=== PATIENT | female | born 1960 | race Caucasian/White ===

== ENCOUNTER 2022-06-12 11:23 | Inpatient (IN) ==
--- NOTE | 2022-06-12 11:38 | ED Triage Note ---
Date of Service June 12, 2022 History of Present Illness This patient was briefly evaluated while in triage. An abbreviated physical exam was performed. This patient is a 61-year-old Female with past medical history of kidney stones who presents to the ED for evaluation of a kidney stone. Patient was a [facility] ED waiting for approximately 13 hours and decided to leave and come here. She had testing done while waiting there and was found to have a 6 mm obstructing stone and urinary tract infection, per patient. She received Toradol, Zofran, and antibiotics while there. Physical Exam VITALS: Vitals are noted on the nurse's note and reviewed by myself. GENERAL: This is a 61-year-old female, in no acute distress, well-developed well-nourished. HEART: Regular rate and rhythm without murmurs gallops or rubs. LUNGS: Clear to auscultation bilaterally without wheezes, rales or rhonchi. ABDOMEN: Positive bowel sounds x 4. Mild tenderness LLQ. No CVA tenderness. NEURO: Patient was alert and oriented to person place and time. Initial orders for labs and / or imaging were placed and patient was placed in the waiting area until a bed is available. Please see further documentation for the full ED course.
[2022-06-12 11:56] LABS: Appearance Urine Clear (Clear); Bacteria Urine Automated Negative (Negative); Bilirubin Urine Negative (Negative); Blood Urine 1+ (Negative); Color Urine Yellow; Glucose Urine UA Negative (Negative); Ketones Urine Negative (Negative); Leukocyte Esterase Urine Trace (Negative); Nitrite Urine Negative (Negative); Protein Urine Negative (Negative); Specific Gravity Urine 1.013 (1.000-1.030); Urobilinogen Urine Negative (Negative); pH Urine 7.5 (4.5-7.5)
[2022-06-12 13:19] LABS: Basophils # (auto) 0.05 K/uL (0-0.2); Basophils % (auto) 0.6 %; Eosinophils # (auto) 0.31 K/uL (0-0.50); Eosinophils % (auto) 3.6 %; Hematocrit (blood only) 36.6 % (34.1-44.9); Hemoglobin 12.1 g/dl (12.0-16.0); Immature Granulocytes # (auto) 0.03 K/uL (0.00-0.02); Immature Granulocytes % (auto) 0.3 %; Lymphocytes # (auto) 2.15 K/uL (1.2-3.4); Lymphocytes % (auto) 24.7 %; Mean Corpuscular Hemoglobin 29.2 pg (25.0-34.0); Mean Corpuscular Hgb Conc 33.1 g/dL (32.0-36.0); Mean Corpuscular Volume 88.4 fL (80.0-100.0); Mean Platelet Volume 9.3 fL (9.4-12.3); Monocytes # (auto) 0.61 K/uL (0.24-0.82); Neutrophils # (auto) 5.57 K/uL (1.4-6.5); Neutrophils % (auto) 63.8 %; Platelet Count 237 K/uL (130-400); RDW Coefficient of Variation 13.8 % (11.5-14.5); RDW Standard Deviation 44.3 fL (36.4-46.3); Red Blood Count 4.14 M/uL (3.93-5.22); White Blood Count 8.72 K/ul (4.8-10.8)
--- NOTE | 2022-06-12 13:28 | XRay Report ---
KUB HISTORY: Left ureteral stone COMPARISON: None. FINDINGS: The bowel gas pattern is unremarkable. There are no dilated loops of small bowel to suggest an obstruction. The renal shadows are mostly obscured by overlying bowel gas. No definite renal chacho culi identified. Calcifications in the deep pelvis are nonspecific but favor phleboliths. There is a 6 mm calcification in the expected location of the left ureteropelvic junction. This may correspond t o the patient's history of a left ureteral stone. No pneumoperitoneum or pneumatosis. IMPRESSION: A 6 mm calcification at the expected location of the left ureteropelvic junction which may correspond to the patient's history of a left ureteral stone. ACT 112: Negative or not required by law. Electronically signed by: Kushal Sun M.D. 06/12/2022 1:27 PM
[2022-06-12] MEDS ORDERED: cefTRIAXone SODIUM 2,000 MG/70 ML BAG IV STA (16:37)
[2022-06-12] MEDS ORDERED: ACETAMINOPHEN 1000 MG/100 ML IV IV STA (16:37)
[2022-06-12] MEDS ORDERED: MoRPHine SULFATE 4 MG/ML 1 ML CARP\\VIAL IV STA (16:37)
[2022-06-12] MEDS ORDERED: ONDANSETRON INJ 2 MG/ML 2 ML VIAL IV STA (16:37)
[2022-06-12] MEDS ORDERED: SODIUM CHLORIDE 0.9% 1000ML 1,000 ML IV ONE (16:37)
--- NOTE | 2022-06-12 16:45 | Emergency Department Note ---
Impression & Plan Acute flank pain, Renal colic, UTI (urinary tract infection) ED Provider Note NAME: JUAREZ HOU AGE: 61 SEX: F : 1960 ARRIVES VIA: Walk-In INFORMANT: [Patient] ED PROVIDER(S): [Boby Aquino MD] CHIEF COMPLAINT: Kidney stone HISTORY OF PRESENT ILLNESS: The patient is a 61-year-old female presents to the ER with just around 2 days of left flank discomfort. The pain became severe last evening and she went to [facility] ED. The pain was a 9/10. She was vomiting. Patient was told that she had a 6 mm proximal left ureteral stone and a UTI. She was given IV fluids and IV antibiotics. She never actually was placed into a room as there was a long wait. The patient eventually left the ED waiting room in [place] and came to our hospital as she could no longer sit there and wait for a bed. The patient's pain is now a 5/10. She still has a bit of nausea. No fever. Patient has a history of renal stones and in the past, she has had to have stenting and stone retrieval. She is here hoping one of our urologist can help. REVIEW OF SYSTEMS: See HPI for pertinent positives and negatives. A total of ten systems were r eviewed and were otherwise negative. PMHx/PSHx: See Below SOCIAL HISTORY: See Below. PHYSICAL EXAM: GENERAL: Patient is in no acute distress. HEENT: No acute trauma, normocephalic atraumatic, mucous membranes moist, no nasal congestion, no scleral icterus. NECK: No stridor, no adenopathy, no meningismus, trachea is midline. LUNGS: Clear to auscultation bilaterally, no wheeze, no rhonchi, breath sounds equal. HEART: Without murmurs gallops or rubs, regular rate and rhythm. ABDOMEN: Soft, nontender, bowel sounds positive, no peritonitis. EXTREMITIES: No cyanosis or edema, full range of motion of all the joints without pain or difficulty, no signs for acute trauma. NEUROLOGIC: Oriented x 3, no acute motor or sensory deficits, no focal weakness. SKIN: No rash, no jaundice, no diaphoresis. Back: No flank discomfort to percussion. DIFFERENTIAL DIAGNOSIS: Renal colic, UTI, appendicitis, diverticulitis, mesenteric ischemia, aortic pathology, infections, inflammatory bowel disease, PUD, biliary pathology, as well as other pathologies. EMERGENCY DEPARTMENT COURSE/PROCEDURES: MEDICAL DECISION MAKING: No leukocytosis or concerning anemia. There is a normal platelet count. No renal failure, no significant electrolyte abnormality in need of emergent correction. No concerning liver enzyme elevation. Urinalysis showed some red cells, no obvious infection by UA. COVID test is currently pending. KUB does show a left proximal ureteral stone consistent with the CT findings reported. On exam, the patient was not toxic or febrile. She did not seem in significant distress. The patient was given IV Tylenol, IV ceftriaxone, IV morphine, IV Zofran and IV saline. I discussed options with the patient. She spoke with her family. The patient has decided to stay at our hospital for presumed urologic intervention tomorrow. I spoke with urology, Dr. Baumann. The patient will likely have a stent and potential stone retrieval tomorrow. Of note, the patient, by her report, was told she had a UTI on top of the renal stone. She had received IV antibiotics at the outside facility. Given this concern, antibiotics were continued. Past Med/Surg History Medical History Frequent UTI History of COVID-19 2021 HLD (hyperlipidemia) HTN (hypertension) Nephrolithiasis Surgical History (Updated 06/12/22 @ 18:29 by Karen Ferro PA-C) History of partial hysterectomy Hx of breast reduction, elective 2013 Hx of colonoscopy Hx of lithotripsy Hx of shoulder surgery b/l rotator cuff Family History Father Coronary heart disease Mother Alzheimer disease Polio Social History Smoking Status: Never smoker Hx Alcohol Use: No Hx Substance Use: No Preferred Language: Korean marital status: Single Current Living Situation: Family Current Living Situation Comment: daughter and grandbaby lives with her Feels Safe at Home: Yes Allergies Allergies Allergy/AdvReac Type Severity Reaction Status Date / Time butorphanol [From Stadol] Allergy Severe Hallucinati Verified 06/12/22 18:31 ng oxybutynin AdvReac Mild Flushing Verified 06/12/22 18:31 Home Meds Home Medications Medication Instructions Recorded Confirmed allopurinol 300 mg tablet 300 mg PO DAILY 06/12/22 06/12/22 ascorbic acid (vitamin C) 125 mg 125 mg PO DAILY 06/12/22 06/12/22 chewable tablet (Vitamin C) cetirizine 10 mg tablet 10 mg PO DAILY 06/12/22 06/12/22 cholecalciferol (vitamin D3) 50 50 mcg PO DAILY 06/12/22 06/12/22 mcg (2,000 unit) tablet docusate sodium 100 mg capsule 100 mg PO DAILY 06/12/22 06/12/22 (Colace) hydrochlorothiazide 25 mg tablet 25 mg PO DAILY 06/12/22 06/12/22 lactobacillus combination no.4 3 3,000 mmu cells PO DAILY 06/12/22 06/12/22 billion cell capsule (Probiotic) metoprolol succinate 25 mg 25 mg PO DAILY 06/12/22 06/12/22 tablet,extended release 24 hr multivitamin 1 tab PO DAILY 06/12/22 06/12/22 pantoprazole 40 mg tablet,delayed 40 mg PO DAILY 06/12/22 06/12/22 release potassium chloride 20 mEq 20 meq PO DAILY 06/12/22 06/12/22 tablet,extended release rosuvastatin 10 mg tablet 10 mg PO DAILY 06/12/22 06/12/22 Results & Data (ED) Vital Signs Vital Signs - 24 hr 06/12/22 11:31 06/12/22 17:48 06/12/22 18:37 Temperature 35.9 C L Temperature Source Temporal Artery Scan Pulse Rate 92 H Pulse Rate [Apical] 78 72 Pulse Rhythm [Apical] Regular Regular Pulse Strength [Apical] Normal Normal Respiratory Rate 20 18 18 Respiratory Effort / Characteristics Non-Labored Non-Labored Non-Labored Respiratory Depth Normal Normal Normal Respiratory Pattern Regular Regular Blood Pressure 162/87 H Blood Pressure [Right Arm] 129/90 137/82 Blood Pressure Mean 112 Blood Pressure Mean [Right Arm] 103 100 Blood Pressure Position [Right Arm] Lying Lying Pulse Oximetry 99 97 98 Oxygen Delivery Method Room Air Room Air Room Air Sepsis Recent Fever Within 48 Hours No Sepsis New/Unexplained Change in Mental Status N/A Sepsis Action Taken by Nursing No Action Required Home Medications Current Medication List: was personally reviewed by me Laboratory Data Attestation: I reviewed the patient's lab results. Result diagrams: 06/12/22 13:00 06/12/22 16:13 Lab Results 06/12/22 06/12/22 06/12/22 Range/Units 11:35 13:00 13:00 WBC 8.72 (4.8-10.8) K/ul RBC 4.14 (3.93-5.22) M/uL Hgb 12.1 (12.0-16.0) g/dl Hct 36.6 (34.1-44.9) % MCV 88.4 (80.0-100.0) fL MCH 29.2 (25.0-34.0) pg MCHC 33.1 (32.0-36.0) g/dL RDW Std Deviation 44.3 (36.4-46.3) fL RDW Coeff of Jeff 13.8 (11.5-14.5) % Plt Count 237 (130-400) K/uL MPV 9.3 L (9.4-12.3) fL Immature Gran % (Auto) 0.3 % Neut % (Auto) 63.8 % Lymph % (Auto) 24.7 % [place] % (Auto) 7.0 % Eos % (Auto) 3.6 % Baso % (Auto) 0.6 % Neut # (Auto) 5.57 (1.4-6.5) K/uL Lymph # (Auto) 2.15 (1.2-3.4) K/uL [place] # (Auto) 0.61 (0.24-0.82) K/uL Eos # (Auto) 0.31 (0-0.50) K/uL Baso # (Auto) 0.05 (0-0.2) K/uL Immature Gran # (Auto) 0.03 H (0.00-0.02) K/uL Sodium Cancelled Potassium Cancelled Chloride Cancelled Carbon Dioxide Cancelled Anion Gap Cancelled BUN Cancelled Creatinine Cancelled Est Cr Clr Drug Dosing Cancelled Est GFR ( Amer) Cancelled Est GFR (Non-Af Amer) Cancelled BUN/Creatinine Ratio Cancelled Glucose Cancelled Calcium Cancelled Total Bilirubin Cancelled AST Cancelled ALT Cancelled Alkaline Phosphatase Cancelled Total Protein Cancelled Albumin Cancelled Globulin Cancelled Albumin/Globulin Ratio Cancelled Urine Color Yellow Urine Appearance Clear (Clear) Urine pH 7.5 (4.5-7.5) Ur Specific [place] 1.013 (1.000-1.030) Urine Protein Negative (Negative) Urine Glucose (UA) Negative (Negative) Urine Ketones Negative (Negative) Urine Blood 1+ H (Negative) Urine Nitrite Negative (Negative) Urine Bilirubin Negative (Negative) Urine Urobilinogen Negative (Negative) Ur Leukocyte Esterase Trace H (Negative) Urine WBC (Auto) 1-5 (0-5) /hpf Urine RBC (Auto) 5-10 H (0-4) /hpf U Hyaline Cast (Auto) 1-5 (0-5) /lpf U Epithel Cells (Auto) 10-20 H (0-5) /lpf Urine Bacteria (Auto) Negative (Negative) 06/12/22 Range/Units 16:13 WBC (4.8-10.8) K/ul RBC (3.93-5.22) M/uL Hgb (12.0-16.0) g/dl Hct (34.1-44.9) % MCV (80.0-100.0) fL MCH (25.0-34.0) pg MCHC (32.0-36.0) g/dL RDW Std Deviation (36.4-46.3) fL RDW Coeff of Jeff (11.5-14.5) % Plt Count (130-400) K/uL MPV (9.4-12.3) fL Immature Gran % (Auto) % Neut % (Auto) % Lymph % (Auto) % [place] % (Auto) % Eos % (Auto) % Baso % (Auto) % Neut # (Auto) (1.4-6.5) K/uL Lymph # (Auto) (1.2-3.4) K/uL [place] # (Auto) (0.24-0.82) K/uL Eos # (Auto) (0-0.50) K/uL Baso # (Auto) (0-0.2) K/uL Immature Gran # (Auto) (0.00-0.02) K/uL Sodium 139 Potassium 3.5 Chloride 101 Carbon Dioxide 29 Anion Gap 9 BUN 21 Creatinine 0.69 Est Cr Clr Drug Dosing 102.7 Est GFR ( Amer) 110.4 Est GFR (Non-Af Amer) 95.3 BUN/Creatinine Ratio 30.4 H Glucose 88 Calcium 9.7 Total Bilirubin 0.7 AST 20 ALT 31 Alkaline Phosphatase 79 Total Protein 7.1 Albumin 4.5 Globulin 2.6 Albumin/Globulin Ratio 1.7 Urine Color Urine Appearance (Clear) Urine pH (4.5-7.5) Ur Specific [place] (1.000-1.030) Urine Protein (Negative) Urine Glucose (UA) (Negative) Urine Ketones (Negative) Urine Blood (Negative) Urine Nitrite (Negative) Urine Bilirubin (Negative) Urine Urobilinogen (Negative) Ur Leukocyte Esterase (Negative) Urine WBC (Auto) (0-5) /hpf Urine RBC (Auto) (0-4) /hpf U Hyaline Cast (Auto) (0-5) /lpf U Epithel Cells (Auto) (0-5) /lpf Urine Bacteria (Auto) (Negative) Administered Medications Discontinued Medications Acetaminophen (Acetaminophen 1000 Mg/100 Ml Iv) 1,000 mg IV NOW STA Stop: 06/12/22 16:38 Last Admin: 06/12/22 17:01 Dose: 1,000 mg Documented By: RSL Sodium Chloride (Nss 1000ml) 1,000 mls @ 999 mls/hr IV .[id number] ONE Stop: 06/12/22 17:37 Last Infusion: 06/12/22 18:58 Dose: 0 mls/hr Documented By: Admin: 06/12/22 17:00 Dose: 999 mls/hr Documented By: RSL Ceftriaxone Sodium (Rocephin) 2,000 mg in 70 mls @ 140 mls/hr IV NOW STA Stop: 06/12/22 17:06 Last Infusion: 06/12/22 17:31 Dose: 0 mls/hr Documented By: Admin: 06/12/22 17:01 Dose: 140 mls/hr Documented By: RSL Morphine Sulfate (Morphine Sulfate 4 Mg/Ml 1 Ml Carp\Vial) 4 mg IV NOW STA Stop: 06/12/22 16:38 Last Admin: 06/12/22 16:59 Dose: 4 mg Documented By: RSL Ondansetron HCl (Ondansetron Inj 2 Mg/Ml 2 Ml Vial) 4 mg IV NOW STA Stop: 06/12/22 16:38 Last Admin: 06/12/22 16:59 Dose: 4 mg Documented By: RSL Imaging Data Radiologist's Impression: KUB X-Ray 06/12/22 12:46 KUB HISTORY: Left ureteral stone COMPARISON: None. FINDINGS: The bowel gas pattern is unremarkable. There are no dilated loops of small bowel to suggest an obstruction. The renal shadows are mostly obscured by overlying bowel gas. No definite renal calculi identified. Calcifications in the deep pelvis are nonspecific but favor phleboliths. There is a 6 mm calcification in the expected location of the left ureteropelvic junction. This may correspond to the patient's history of a left ureteral stone. No pneumoperitoneum or pneumatosis. IMPRESSION: A 6 mm calcification at the expected location of the left ureteropelvic junction which may correspond to the patient's history of a left ureteral stone. ACT 112: Negative or not required by law. Electronically signed by: Kushal Sun M.D. 06/12/2022 1:27 PM Discharge Plan Visit Data Chief Complaint: Kidney Stone Stated Complaint: KIDNEY STONES ED Provider: Boby Aquino Discharge Problem: Acute flank pain, Renal colic, UTI (urinary tract infection) Patient Disposition: Admitted As Inpatient Condition: Good Forms Stand Alone Forms: My [employer] Prescriptions Prescriptions: No Action allopurinol 300 mg tablet 300 mg PO DAILY hydrochlorothiazide 25 mg tablet 25 mg PO DAILY metoprolol succinate 25 mg tablet extended release 24 hr 25 mg PO DAILY rosuvastatin 10 mg tablet 10 mg PO DAILY multivitamin Tablet 1 tab PO DAILY cetirizine 10 mg Tablet 10 mg PO DAILY pantoprazole 40 mg Tablet,Delayed Release (Dr/Ec) 40 mg PO DAILY cholecalciferol (vitamin D3) 50 mcg (2,000 unit) Tablet 50 mcg PO DAILY Probiotic 3 billion cell Capsule 3,000 mmu cells PO DAILY Rx Instructions: administer with a meal ascorbic acid (vitamin C) [Vitamin C] 125 mg Tablet,Chewable 125 mg PO DAILY potassium chloride 20 mEq tablet extended release 20 meq PO DAILY docusate sodium [Colace] 100 mg Capsule 100 mg PO DAILY Referrals Referrals: PCP,NO [Physician] -
[2022-06-12 16:48] LABS: Albumin Globulin Ratio 1.7 (0.9-2); Albumin Level 4.5 gm/dl (3.4-5.0); BUN Creatinine Ratio 30.4 (10-20); Bilirubin,Total 0.7 mg/dl (0.2-1.0); Calcium 9.7 mg/dl (8.5-10.1); Creatinine Clr Calc Pharmacy 102.7 ml/min; Est GFR (African American) 110.4 ml/min; Est GFR (Non-African American) 95.3 ml/min; Globulin 2.6 gm/dl (2.5-4.0); Potassium 3.5 mmol/L (3.5-5.1); Total Protein 7.1 gm/dl (6.0-8.3)
--- NOTE | 2022-06-12 18:35 | History & Physical Report ---
Date of Service June 12, 2022 Assessment & Plan (1) Left ureteral calculus: Plan This is a 61 yr old F who has a significant PMH of HTN, HLD, frequent kidney stones, recurrent UTI and gerd who presents to ED 2/2 L sided lower quadrant pain x 1 day. Pt was initially seen and evaluated at [facility] for her LLQ pain. Told she had a stone, UTI, tx with IV antibiotics, fluids and pain meds. Was there for ~ 36hrs, but wasn't satisfied with care/didn't seen urology. She left AMA and presented to our ED. Left ureteral calculus Possible UTI KUB reveals 6 mm calcification at the left UPJ Admit to medical Consult urology N.p.o. after midnight for likely stent placement Patient with frequent kidney stones, follows urologist in [place] in [place] On allopurinol and HCTZ as outpatient Flomax 0.4 mg at HS LR at 125 an hour Strain all urine Currently hemodynamically stable without leukocytosis, no indication for urgent intervention Per patient she was told she had UTI at [facility], urine here looks benign but could be partially treated Continue empiric ceftriaxone, will obtain records from [facility] HTN continue metoprolol, hctz HLD continue crestor DVT ppx: SCDS, consider chemical prophylaxis post op tomorrow FULL CODE DISPO: med/surg PCP: Rita Gil Pt was seen and examined in collaboration with Dr. Mazariegos, please see addendum History of Present Illness Chief Complaint: L sided lower quadrant pain x 1 day. Primary Care Provider: Rita Gil This is a 61 yr old F who has a significant PMH of HTN, HLD, frequent kidney stones, recurrent UTI and gerd who presents to ED 2/2 L sided lower quadrant pain x 1 day. She developed L sided pain yesterday. At approx 7pm last evening she developed severe pains on L side of lower abdomen. Due to pain becoming more severe she presented to [facility]. She was dx with 6mm stone. She was told she had a UTI. She was given IV antibiotics, fluids and pain meds. Pain radiated to the back. Pain was 9/10. She described it as stabbing pain. Pain was constant but would come and go in severity. "This pain is much worse then labor pains." She was at [facility] for approx 36 hours and didn't see anyone from urology. Due to this she opted to leave the hospital AMA and presented here to seek, "better care." She did experience feeling feverish, chills, n/v. Currently these have subsided. She had 1 episode of diarrhea last evening. She feels generally dry and occasionally lightheaded. She denies any chest pain, sob, cough, uri sx, hematemesis, melena, hematochezia, dysuria, or hematuria. She does have more frequency and urgency. In our ED KUB does show 6mm L UPJ stone. She was treated with IV antibiotics and pain meds. Allergies Allergy/AdvReac Type Severity Reaction Status Date / Time butorphanol [From Stadol] Allergy Severe Hallucinati Verified 06/12/22 18:31 ng oxybutynin AdvReac Mild Flushing Verified 06/12/22 18:31 Home Medications Medication Instructions Recorded Confirmed Type allopurinol 300 mg tablet 300 mg PO DAILY 06/12/22 06/12/22 History ascorbic acid (vitamin C) 125 mg 125 mg PO DAILY 06/12/22 06/12/22 History chewable tablet (Vitamin C) cetirizine 10 mg tablet 10 mg PO DAILY 06/12/22 06/12/22 History cholecalciferol (vitamin D3) 50 50 mcg PO DAILY 06/12/22 06/12/22 History mcg (2,000 unit) tablet docusate sodium 100 mg capsule 100 mg PO DAILY 06/12/22 06/12/22 History (Colace) hydrochlorothiazide 25 mg tablet 25 mg PO DAILY 06/12/22 06/12/22 History lactobacillus combination no.4 3 3,000 mmu cells PO DAILY 06/12/22 06/12/22 History billion cell capsule (Probiotic) metoprolol succinate 25 mg 25 mg PO DAILY 06/12/22 06/12/22 History tablet,extended release 24 hr multivitamin 1 tab PO DAILY 06/12/22 06/12/22 History pantoprazole 40 mg tablet,delayed 40 mg PO DAILY 06/12/22 06/12/22 History release potassium chloride 20 mEq 20 meq PO DAILY 06/12/22 06/12/22 History tablet,extended release rosuvastatin 10 mg tablet 10 mg PO DAILY 06/12/22 06/12/22 History Past Med/Surg History Medical History (Updated 06/12/22 @ 21:03 by Boby Aquino MD) Frequent UTI History of COVID-19 2021 HLD (hyperlipidemia) HTN (hypertension) Nephrolithiasis Surgical History (Updated 06/12/22 @ 18:29 by Karen Ferro PA-C) History of partial hysterectomy Hx of breast reduction, elective 2013 Hx of colonoscopy Hx of lithotripsy Hx of shoulder surgery b/l rotator cuff Family History Father Coronary heart disease Mother Alzheimer disease Polio Social History (Updated 06/12/22 @ 18:29 by Karen Ferro PA-C) Smoking Status: Never smoker Hx Alcohol Use: No Hx Substance Use: No Preferred Language: German marital status: Single Current Living Situation: Family Current Living Situation Comment: daughter and grandbaby lives with her Feels Safe at Home: Yes Review of Systems Review of Systems: All systems reviewed & are unremarkable except as noted in HPI & below Physical Exam Physical Exam: please refer to Dr. Mazariegos addendum for physical exam findings Results & Data Results & Data ([facility]) Vital Signs (Past 12 Hours) Vital Signs Temp Pulse Pulse Resp BP BP Pulse Ox 06/12/22 17:48 78 18 129/90 97 06/12/22 11:31 35.9 C L 92 H 20 162/87 H 99 O2 Del Method 06/12/22 17:48 Room Air 06/12/22 11:31 Room Air Diagnostic Findings KUB X-Ray 06/12/22 12:46 KUB HISTORY: Left ureteral stone COMPARISON: None. FINDINGS: The bowel gas pattern is unremarkable. There are no dilated loops of small bowel to suggest an obstruction. The renal shadows are mostly obscured by overlying bowel gas. No definite renal calculi identified. Calcifications in the deep pelvis are nonspecific but favor phleboliths. There is a 6 mm calcification in the expected location of the left ureteropelvic junction. This may correspond to the patient's history of a left ureteral stone. No pneumoperitoneum or pneumatosis. IMPRESSION: A 6 mm calcification at the expected location of the left ureteropelvic junction which may correspond to the patient's history of a left ureteral stone. ACT 112: Negative or not required by law. Electronically signed by: Kushal Sun M.D. 06/12/2022 1:27 PM Medications Administered Medication List Discontinued Medications Acetaminophen (Acetaminophen 1000 Mg/100 Ml Iv) 1,000 mg IV NOW STA Stop: 06/12/22 16:38 Last Admin: 06/12/22 17:01 Dose: 1,000 mg Documented By: RSL Sodium Chloride (Nss 1000ml) 1,000 mls @ 999 mls/hr IV .Q1H1M ONE Stop: 06/12/22 17:37 Last Infusion: 06/12/22 18:58 Dose: 0 mls/hr Documented By: Admin: 06/12/22 17:00 Dose: 999 mls/hr Documented By: RSL Ceftriaxone Sodium (Rocephin) 2,000 mg in 70 mls @ 140 mls/hr IV NOW STA Stop: 06/12/22 17:06 Last Infusion: 06/12/22 17:31 Dose: 0 mls/hr Documented By: Admin: 06/12/22 17:01 Dose: 140 mls/hr Documented By: RSL Morphine Sulfate (Morphine Sulfate 4 Mg/Ml 1 Ml Carp\\Vial) 4 mg IV NOW STA Stop: 06/12/22 16:38 Last Admin: 06/12/22 16:59 Dose: 4 mg Documented By: RSL Ondansetron HCl (Ondansetron Inj 2 Mg/Ml 2 Ml Vial) 4 mg IV NOW STA Stop: 06/12/22 16:38 Last Admin: 06/12/22 16:59 Dose: 4 mg Documented By: RSL COVID-19 Results Results COVID-19 Adm Lab Results: RBC 4.14 M/uL (3.93-5.22) 06/12/22 WBC 8.72 K/ul (4.8-10.8) 06/12/22 Hgb 12.1 g/dl (12.0-16.0) 06/12/22 Hct 36.6 % (34.1-44.9) 06/12/22 Plt Count 237 K/uL (130-400) 06/12/22 Neutrophils (%) (Auto) 63.8 % 06/12/22 Lymphocytes (%) (Auto) 24.7 % 06/12/22 Monocytes # (Auto) 0.61 K/uL (0.24-0.82) 06/12/22 Eosinophils # (Auto) 0.31 K/uL (0-0.50) 06/12/22 Immature Granulocyte % (Auto) 0.3 % 06/12/22 Neutrophils # (Auto) 5.57 K/uL (1.4-6.5) 06/12/22 Lymphocytes # (Auto) 2.15 K/uL (1.2-3.4) 06/12/22 Monocytes # (Auto) 0.61 K/uL (0.24-0.82) 06/12/22 Eosinophils # (Auto) 0.31 K/uL (0-0.50) 06/12/22 Basophils # (Auto) 0.05 K/uL (0-0.2) 06/12/22 Immature Granulocyte # (Auto) 0.03 K/uL (0.00-0.02) H 06/12 Na 139 mmol/L (136-145) 06/12/22 K 3.5 mmol/L (3.5-5.1) 06/12/22 Cl 101 mmol/L (98-107) 06/12/22 CO2 29 mmol/L (21-32) 06/12/22 Anion Gap 9 (3-11) 06/12/22 BUN 21 mg/dl (6-23) 06/12/22 Creatinine 0.69 mg/dl (0.6-1.2) 06/12/22 BUN/Creatinine Ratio 30.4 (10-20) H 06/12/22 Glucose Level 88 mg/dl (70-99(Fasting)) 06/12/22 Ca 9.7 mg/dl (8.5-10.1) 06/12/22 Total Bilirubin 0.7 mg/dl (0.2-1.0) 06/12/22 AST/SGOT 20 U/L (13-39) 06/12/22 ALT/SGPT 31 U/L (7-52) 06/12/22 Alkaline Phosphatase 79 U/L (34-104) 06/12/22 Total Protein 7.1 gm/dl (6.0-8.3) 06/12/22 Albumin 4.5 gm/dl (3.4-5.0) 06/12/22 Globulin 2.6 gm/dl (2.5-4.0) 06/12/22 Albumin/Globulin Ratio 1.7 (0.9-2) 06/12/22 SARS-CoV-2, RNA, NAAT Pending 06/12/22 Code Status & VTE Plan Code Status FULL CODE VTE Prophylaxis Plan VTE Prophylaxis will be ordered: Yes Supervising Physician Co-Signing Physician Notes Patient is a 61-year-old female with history of nephrolithiasis, recurrent UTIs and other medical problems presents with history of left lower quadrant abdominal and flank pain. She was evaluated at [facility] and was noted to have 6 mm ureteral stone on CT abdomen and her urine analysis was concerning for UTI as per patient. She received IV antibiotics and was plan to be admitted but patient preferred to come to [facility] due to delayed care. She also reported nausea, vomiting, chills. Please review HPI for complete details. Blood work is within normal limits. KUB showed 6 mm calcification in the expected location of the left ureteropelvic junction thought to be ureteral stone. Patient received IV Rocephin while in ED. Current urine analysis not suggestive of UTI. Physical Exam: Vitals signs as noted above General Appearance:Obese, no apparent distress Head: normocephalic, Atraumatic Eyes: normal inspection, EOMI Neck: supple, Trachea midline Respiratory/Chest: Normal breath sounds, CTA, No accessory muscle use Cardiovascular: S1, S2, No murmur Abdomen/GI:Soft, Non tender, Bowel sounds present, no flank tenderness, no guarding or rigidity Extremities/Musculoskeletal:normal inspection, no edema Neurologic/Psych:AAOX3, grossly no focal neurological deficits Skin: normal color, warm Left ureteral calculus Possible UTI Started on IV fluids, Flomax, Pyridium as needed Urology consulted [employer]BER after midnight Pain control as needed Strain all urine Obtain records from [facility] Continue Rocephin I personally reviewed the record. Patient is interviewed and examined at bedside. Patient's care is coordinated with Karen Ferro PA-C. Please refer to the documentation above for details of patient's presentation and for discussion of other issues.
[2022-06-13] MEDS ORDERED: POLYETHYLENE (MIRALAX) 17 GM PACK PO PRN (01:30)
[2022-06-13] MEDS ORDERED: ALUMINUM/MAGNESIUM SUSP 30 ML UDC PO PRN (01:30)
[2022-06-13] MEDS ORDERED: MAGNESIUM HYDROXIDE SUSP 30 ML UDC PO PRN (01:30)
[2022-06-13] MEDS ORDERED: MoRPHine SULFATE 4 MG/ML 1 ML CARP\\VIAL IV PRN (01:30)
[2022-06-13] MEDS ORDERED: ONDANSETRON INJ 2 MG/ML 2 ML VIAL IV PRN ×2 (01:30→10:39)
[2022-06-13] MEDS ORDERED: KETOROLAC TROMETHAMINE 15 MG/ML VIAL IV PRN (01:30)
[2022-06-13] MEDS ORDERED: PHENAZOPYRIDINE HCL 200 MG TAB PO PRN (01:30)
[2022-06-13] MEDS: ACETAMINOPHEN 325 MG TAB PO PRN ×4 (02:15→23:34)
[2022-06-13] MEDS: LACTATED RINGER'S 1,000 ML IV SCH ×4 (02:15→21:03)
[2022-06-13] MEDS: TAMSULOSIN HCL 0.4 MG CAP PO SCH ×2 (02:19→19:48)
[2022-06-13 07:42] LABS: Basophils # (auto) 0.04 K/uL (0-0.2); Basophils % (auto) 0.7 %; Eosinophils # (auto) 0.45 K/uL (0-0.50); Eosinophils % (auto) 8.4 %; Hematocrit (blood only) 34.8 % (34.1-44.9); Hemoglobin 11.4 g/dl (12.0-16.0); Immature Granulocytes # (auto) 0.01 K/uL (0.00-0.02); Immature Granulocytes % (auto) 0.2 %; Lymphocytes # (auto) 1.69 K/uL (1.2-3.4); Lymphocytes % (auto) 31.5 %; Mean Corpuscular Hemoglobin 28.6 pg (25.0-34.0); Mean Corpuscular Hgb Conc 32.8 g/dL (32.0-36.0); Mean Corpuscular Volume 87.4 fL (80.0-100.0); Mean Platelet Volume 9.3 fL (9.4-12.3); Monocytes % (auto) 9.3 %; Neutrophils # (auto) 2.68 K/uL (1.4-6.5); Neutrophils % (auto) 49.9 %; Platelet Count 238 K/uL (130-400); RDW Coefficient of Variation 13.4 % (11.5-14.5); RDW Standard Deviation 43.1 fL (36.4-46.3); Red Blood Count 3.98 M/uL (3.93-5.22); White Blood Count 5.37 K/ul (4.8-10.8)
[2022-06-13 07:58] LABS: BUN Creatinine Ratio 29.5 (10-20); Calcium 8.4 mg/dl (8.5-10.1); Creatinine Clr Calc Pharmacy 116.4 ml/min; Est GFR (Non-African American) 99.2 ml/min; Magnesium 1.9 mg/dl (1.7-2.4); Potassium 3.5 mmol/L (3.5-5.1)
--- NOTE | 2022-06-13 08:06 | Urology Consultation ---
Date of Consultation June 13, 2022 Assessment & Plan (1) Acute flank pain: (2) Left ureteral calculus: 61 yo F admitted for left renal colic secondary to an obstructing 6 mm left UPJ stone. - Urology consulted for left UPJ stone. - KUB reviewed and showed 6 mm left UPJ stone. - Subjectively doing better since arrival, continues to have intermittent moderate left abdominal pain and nausea. - Pt afebrile, nontoxic and hemodynamically stable. - Lab work reviewed - creatinine and WBC within normal limits. - Per admitting notes, her UA was suspicious for infection at outside facility. She is on IV Ceftriaxone - follow outside cultures. - Discussed options for stone management including trial of passage vs surgical intervention. - Discussed options for left ureteral stent placement vs outpatient ESWL or ureteroscopy, laser lithotripsy, and stent if pain is controlled. Ureteral stents were discussed in detail. Expected clinical course discussed. - She wishes to proceed with left ureteral stent placement today. - Discussed need for stone treatment in future after suspected acute infection is treated. She follows with Dr. Israel in [place]. - Findings reviewed with Dr. Baumann. Given her intractable pain and nausea in the context of an obstructing 6 mm left UPJ stone, will proceed with OR for cystoscopy, Left retrograde pyelogram and Left stent placement. - Risks and benefits to be reviewed with patient by Dr. Baumann. OR notified. Will cover with scheduled IV Ceftriaxone preoperatively. - Keep NPO for procedure. History of Present Illness Reason for Consultation: Left ureteral stone Requesting Physician: Karen Ferro PA-C Attending Physician: Obinna Gupta MD History of Present Illness Patient is a 61-year-old female with history of nephrolithiasis, recurrent UTIs, hypertension, and hyperlipidemia presented to [facility] emergency department with left lower quadrant abdominal and flank pain. She was initially evaluated at [facility] and was noted to have a 6 mm left ureteral stone on CT A/P and her urine analysis was concerning for UTI as per patient. She received IV antibiotics and was going to be admitted there but patient preferred to come to [facility] due to delayed care. On arrival to [facility] ER, she was afebrile. KUB showed 6 mm calcification in the expected location of the left ureteropelvic junction. Lab work reviewed and creatinine was within normal limits and no leukocytosis. UA on admission here showed trace leukocytes, 5-10 RBCs, and 10-20 epithelials. Patient received IV Rocephin while in ED. She was admitted by the hospital medicine service. Urology is consulted for left UPJ stone. Patient seen and examined at bedside. She continues to have left lower quadrant abdominal pain and nausea. She is voiding without difficulty, no dysuria or hematuria. No fever or chills. No chest pain or shortness of breath. She was afebrile overnight. Her lab work this morning shows a normal creatinine and no leukocytosis. She is NPO. Longstanding history of nephrolithiasis. She follows with urology, Dr. Israel in [place], and nephrology. She is maintained on allopurinol and hydrochlorothiazide. She has history of spontaneous passage of stones as well as surgical intervention with ureteroscopy, laser lithotripsy, and stent placement. Allergies Allergy/AdvReac Type Severity Reaction Status Date / Time butorphanol [From Stadol] Allergy Severe Hallucinati Verified 06/12/22 18:31 ng oxybutynin AdvReac Mild Flushing Verified 06/12/22 18:31 Home Medications Medication Instructions Recorded Confirmed Type allopurinol 300 mg tablet 300 mg PO DAILY 06/12/22 06/12/22 History ascorbic acid (vitamin C) 125 mg 125 mg PO DAILY 06/12/22 06/12/22 History chewable tablet (Vitamin C) cetirizine 10 mg tablet 10 mg PO DAILY 06/12/22 06/12/22 History cholecalciferol (vitamin D3) 50 50 mcg PO DAILY 06/12/22 06/12/22 History mcg (2,000 unit) tablet docusate sodium 100 mg capsule 100 mg PO DAILY 06/12/22 06/12/22 History (Colace) hydrochlorothiazide 25 mg tablet 25 mg PO DAILY 06/12/22 06/12/22 History lactobacillus combination no.4 3 3,000 mmu cells PO DAILY 06/12/22 06/12/22 History billion cell capsule (Probiotic) metoprolol succinate 25 mg 25 mg PO DAILY 06/12/22 06/12/22 History tablet,extended release 24 hr multivitamin 1 tab PO DAILY 06/12/22 06/12/22 History pantoprazole 40 mg tablet,delayed 40 mg PO DAILY 06/12/22 06/12/22 History release potassium chloride 20 mEq 20 meq PO DAILY 06/12/22 06/12/22 History tablet,extended release rosuvastatin 10 mg tablet 10 mg PO DAILY 06/12/22 06/12/22 History Patient History Medical History Frequent UTI History of COVID-19 2021 HLD (hyperlipidemia) HTN (hypertension) Nephrolithiasis Surgical History History of partial hysterectomy Hx of breast reduction, elective 2013 Hx of colonoscopy Hx of lithotripsy Hx of shoulder surgery b/l rotator cuff Family History Father Coronary heart disease Mother Alzheimer disease Polio Social History Smoking Status: Never smoker Second Hand Exposure: No; Do You Dip or Chew Tobacco: No; Hx Alcohol Use: No Hx Substance Use: No Preferred Language: Guyanese Communication Ability: Effective Gore Maker Required: No Beliefs That Will Affect Care: None marital status: Single Current Living Situation: Alone Current Living Situation Comment: daughter and grandbaby lives with her Feels Safe at Home: Yes Safety Concerns: Feels Safe At This Time Assistive Devices: None Review of Systems Review of Systems: All systems reviewed & are unremarkable except as noted in HPI & below Physical Exam Constitutional: well developed and well nourished; no acute distress and not ill appearing Eyes: no scleral abnormality Respiratory: normal respiratory effort; no respiratory distress and no labored breathing Cardiovascular: Extremities: no pedal edema Gastrointestinal (Abdomen): Inspection/Auscultation: abdomen normal to inspection; abdomen not distended Percussion/Palpation: abdomen soft; abdomen nontender and no guarding Musculoskeletal: Head/Neck/Chest: normocephalic and head atraumatic Skin: no rashes, warm and dry Neurologic: moves all extremities and awake Psychiatric: Orientation: alert and oriented x 3 Genitourinary: no CVA tenderness Results & Data ([facility]) Vital Signs (Past 12 Hours) Vital Signs Temp Pulse Pulse Resp BP Pulse Ox O2 Del Method 06/13/22 07:48 36.6 C 77 16 129/75 94 06/13/22 01:30 Room Air 06/13/22 01:42 98 Room Air 06/13/22 01:30 36.7 C 73 16 135/84 Room Air 06/12/22 22:00 69 18 130/79 98 Room Air PG Care Time/CCT Total # of Minutes Spent Total Time Spent with Patient: Total time spent is greater than 50% in coordination of care (as documented) at patient's floor/unit and/or counseling patient: Coding Level of Care Code 17459 Inpt Consult Level 3 Diagnoses Acute flank pain R10.9 Left ureteral calculus N20.1
[2022-06-13] MEDS: ASCORBIC ACID 500 MG TAB PO SCH (08:59)
[2022-06-13] MEDS: allopurinoL 300 MG TAB PO SCH (09:00)
[2022-06-13] MEDS: ROSUVASTATIN CALCIUM 10 MG TAB PO SCH (09:00)
[2022-06-13] MEDS: CHOLECALCIFEROL 1,000 UNITS 25 MCG TAB PO SCH (09:00)
[2022-06-13] MEDS: DOCUSATE SODIUM 100 MG CAP PO SCH (09:00)
[2022-06-13] MEDS: METOPROLOL SUCC 25MG EXT REL TAB PO SCH (09:00)
[2022-06-13] MEDS: ADVANCED PROBIOTIC 1250 MG CAPSULE PO SCH (09:00)
[2022-06-13] MEDS: hydroCHLOROthiazide 25 MG TAB PO SCH (09:00)
[2022-06-13] MEDS: POTASSIUM CHLORIDE CRTAB 20 MEQ TABCR PO SCH (09:00)
[2022-06-13] MEDS: MULTIVITAMIN TAB PO SCH (09:00)
[2022-06-13] MEDS: PANTOprazole 40 MG TAB PO SCH (09:00)
[2022-06-13] MEDS: CETIRIZINE HCL 10 MG TABLET PO SCH (09:00)
--- NOTE | 2022-06-13 09:03 | XRay Report ---
KUB CLINICAL HISTORY: 6mm L UPJ stone COMPARISON STUDY: KUB June 12, 2022. FINDINGS: Bowel gas pattern is normal. Pelvic calcifications are unchanged and favor phleboliths. The re may be postoperative findings within the pelvis with surgical staple lines. 6 mm calcification now projects over the expected location of the proximal left ureter. There is slight distal migration si nce prior KUB. There are possible bilateral renal calculi. IMPRESSION: 1. Suspected 6 mm proximal left ureteral calculus. Slight distal migration since prior exam. 2. Possible bilateral nephrolithiasis. ACT 112: Negative or not required by law. Electronically signed by: Fabien Slater M.D. 06/13/2022 9:02 AM
[2022-06-13] MEDS ORDERED: PROPOFOL IV EMULSION 10 MG/ML 20 ML VIAL IV ONE (10:01)
[2022-06-13] MEDS ORDERED: fentaNYL citrate 100 MCG/2 ML VIAL ONE (10:01)
[2022-06-13] MEDS ORDERED: MIDAZOLAM HCL 1 MG/ML 2ML VIAL ONE (10:01)
--- NOTE | 2022-06-13 10:23 | Anesthesiology Consultation ---
Date of Service June 13, 2022 Assessment & Plan (1) Encounter for pre-operative examination: Chart Review Chart Review: entry level programmer initiated History Surgery Operation Date: 06/13/22 07:40 Proposed Procedures p Cystoscopy Left Stent Placement - Bubba Baumann MD Height/Weight Height: 5 ft 7 in Weight: 93.2 kg Allergies Allergy/AdvReac Type Severity Reaction Status Date / Time butorphanol [From Stadol] Allergy Severe Hallucinati Verified 06/12/22 18:31 ng oxybutynin AdvReac Mild Flushing Verified 06/12/22 18:31 Medications Home Medications Medication Instructions Recorded Confirmed Last Taken allopurinol 300 mg tablet 300 mg PO DAILY 06/12/22 06/12/22 Unknown ascorbic acid (vitamin C) 125 mg 125 mg PO DAILY 06/12/22 06/12/22 Unknown chewable tablet (Vitamin C) cetirizine 10 mg tablet 10 mg PO DAILY 06/12/22 06/12/22 Unknown cholecalciferol (vitamin D3) 50 50 mcg PO DAILY 06/12/22 06/12/22 Unknown mcg (2,000 unit) tablet docusate sodium 100 mg capsule 100 mg PO DAILY 06/12/22 06/12/22 Unknown (Colace) hydrochlorothiazide 25 mg tablet 25 mg PO DAILY 06/12/22 06/12/22 Unknown lactobacillus combination no.4 3 3,000 mmu cells PO DAILY 06/12/22 06/12/22 Unknown billion cell capsule (Probiotic) metoprolol succinate 25 mg 25 mg PO DAILY 06/12/22 06/12/22 Unknown tablet,extended release 24 hr multivitamin 1 tab PO DAILY 06/12/22 06/12/22 Unknown pantoprazole 40 mg tablet,delayed 40 mg PO DAILY 06/12/22 06/12/22 Unknown release potassium chloride 20 mEq 20 meq PO DAILY 06/12/22 06/12/22 Unknown tablet,extended release rosuvastatin 10 mg tablet 10 mg PO DAILY 06/12/22 06/12/22 Unknown Active Medications Generic Name Dose Route Start Last Admin Trade Name Freq PRN Reason Stop Dose Admin Acetaminophen 650 mg 06/13/22 01:30 06/13/22 08:58 Acetaminophen 325 Mg Tab PO 07/13/22 01:29 650 mg Q4H PRN Administration pain/fever Allopurinol 300 mg 06/13/22 09:00 06/13/22 09:00 Allopurinol 300 Mg Tab PO 07/13/22 08:59 300 mg DAILY TWYLA Administration Ascorbic Acid 125 mg 06/13/22 09:00 06/13/22 08:59 Ascorbic Acid 500 Mg Tab PO 07/13/22 08:59 125 mg DAILY TWYLA Administration Cetirizine HCl 10 mg 06/13/22 09:00 06/13/22 09:00 Cetirizine Hcl 10 Mg Tablet PO 07/13/22 08:59 10 mg DAILY TWYLA Administration Docusate Sodium 100 mg 06/13/22 09:00 06/13/22 09:00 Docusate Sodium 100 Mg Cap PO 07/13/22 08:59 100 mg DAILY TWYLA Administration Hydrochlorothiazide 25 mg 06/13/22 09:00 06/13/22 09:00 Hydrochlorothiazide 25 Mg Tab PO 07/13/22 08:59 25 mg DAILY TWYLA Administration Lactated Ringer's 1,000 mls @ 125 mls/hr 06/13/22 01:30 06/13/22 02:15 Lr IV 07/13/22 01:29 125 mls/hr .Q8H TWYLA Administration Lactobacillus Acidophilus 2 cap 06/13/22 09:00 06/13/22 09:00 Advanced Probiotic 1250 Mg Capsule PO 07/13/22 08:59 2 cap DAILY TWYLA Administration Metoprolol Succinate 25 mg 06/13/22 09:00 06/13/22 09:00 Metoprolol Succ 25mg Ext Rel Tab PO 07/13/22 08:59 25 mg DAILY TWYLA Administration Multivitamins 1 tab 06/13/22 09:00 06/13/22 09:00 Multivitamin Tab PO 07/13/22 08:59 1 tab DAILY TWYLA Administration Ondansetron HCl 4 mg 06/13/22 01:30 06/13/22 02:15 Ondansetron Inj 2 Mg/Ml 2 Ml Vial IV 07/13/22 01:29 4 mg Q6H PRN Administration Nausea Pantoprazole Sodium 40 mg 06/13/22 09:00 06/13/22 09:00 Pantoprazole 40 Mg Tab PO 07/13/22 08:59 40 mg DAILY TWYLA Administration Potassium Chloride 20 meq 06/13/22 09:00 06/13/22 09:00 Potassium Chloride Crtab 20 Meq Tabcr PO 07/13/22 08:59 20 meq DAILY TWYLA Administration Rosuvastatin Calcium 10 mg 06/13/22 09:00 06/13/22 09:00 Rosuvastatin Calcium 10 Mg Tab PO 07/13/22 08:59 10 mg DAILY TWYLA Administration Tamsulosin HCl 0.4 mg 06/13/22 01:30 06/13/22 02:19 Tamsulosin Hcl 0.4 Mg Cap PO 07/13/22 01:29 0.4 mg HS TWYLA Administration Vitamin D 2,000 units 06/13/22 09:00 06/13/22 09:00 Cholecalciferol 1,000 Units 25 Mcg Tab PO 07/13/22 08:59 2,000 units DAILY TWYLA Administration Past Medical History Medical History Frequent UTI History of COVID-19 2021 HLD (hyperlipidemia) HTN (hypertension) Nephrolithiasis Past Family History Family History Father Coronary heart disease Mother Alzheimer disease Polio Past Surgical History Surgical History History of partial hysterectomy Hx of breast reduction, elective 2013 Hx of colonoscopy Hx of lithotripsy Hx of shoulder surgery b/l rotator cuff Social History Smoking Status: Never smoker Do You Dip or Chew Tobacco: No Hx Alcohol Use: No Hx Substance Use: No Physical Exam Vital Signs Last Vital Signs Temp 97.9 F 06/13/22 07:48 Pulse 77 06/13/22 07:48 Resp 16 06/13/22 07:48 BP 129/75 06/13/22 07:48 Pulse Ox 94 06/13/22 07:48 O2 Del Method 06/13/22 01:42 Testing Laboratory Results 06/13/22 06:57 06/13/22 06:57 Urine Color Yellow 06/12/22 11:35 Urine Appearance Clear (Clear) 06/12/22 11:35 Urine pH 7.5 (4.5-7.5) 06/12/22 11:35 Ur Specific [place] 1.013 (1.000-1.030) 06/12/22 11:35 Urine Protein Negative (Negative) 06/12/22 11:35 Urine Glucose (UA) Negative (Negative) 06/12/22 11:35 Urine Ketones Negative (Negative) 06/12/22 11:35 Urine Nitrite Negative (Negative) 06/12/22 11:35 Ur Leukocyte Esterase Trace (Negative) H 06/12/22 11:35 Urine WBC (Auto) 1-5 /hpf (0-5) 06/12/22 11:35 Urine RBC (Auto) 5-10 /hpf (0-4) H 06/12/22 11:35 U Hyaline Cast (Auto) 1-5 /lpf (0-5) 06/12/22 11:35 U Epithel Cells (Auto) 10-20 /lpf (0-5) H 06/12/22 11:35 Urine Bacteria (Auto) Negative (Negative) 06/12/22 11:35
[2022-06-13] MEDS ORDERED: fentaNYL citrate 100 MCG/2 ML VIAL IV PRN (10:39)
[2022-06-13] MEDS ORDERED: ATROPINE SULFATE 0.1 MG/ML 10ML SYR IV PRN (10:39)
[2022-06-13] MEDS ORDERED: ePHEDrine sulfate 50 MG/ML AMP IV PRN (10:39)
[2022-06-13] MEDS ORDERED: LIDOCAINE 2% MPF LOCAL 5 ML VIAL INFIL ONE (10:47)
[2022-06-13] MEDS ORDERED: ONDANSETRON INJ 2 MG/ML 2 ML VIAL ONE (10:47)
[2022-06-13] MEDS ORDERED: guaiFENesin 600 MG TABCR PO PRN (11:13)
[2022-06-13] MEDS ORDERED: COUGH DROP (SUGAR FREE) LOZ 24 LOZ/1 BOX BUCCAL PRN (11:13)
[2022-06-13] MEDS ORDERED: KETOROLAC 30 MG/ML VIAL ONE (11:26)
[2022-06-13] MEDS ORDERED: DIATRIZOATE MEGLUMINE 30% 100ML VIAL INSTIL ONE (11:35)
--- NOTE | 2022-06-13 11:38 | Operative Report ---
PG Post Operative Report Pre & Post Diagnosis Operation Date: 06/13/22 07:40 Pre-Op Diagnosis: Left ureteral stone Post-Op Diagnosis: Left ureteral stone I identified the patient and participated in the time-out.: Yes Procedure Operation Date: 06/13/22 07:40 Actual Procedures p Cystoscopy Left Stent Placement - Bubba Baumann MD Surgeon Bubba Baumann MD Earth Burner none Estimated Blood Loss 0 Findings Consistent with Post-Op Diagnosis Specimens none Description of Procedure The patient was identified in the preoperative holding area, appropriate informed consents were reviewed and completed and the patient was transferred to the operative suite. Upon arrival, appropriate antibiotics and anesthesia were administered and the patient was placed in dorsal lithotomy position and prepped and draped in sterile fashion. Taken the case to pass a 22 Polish cystoscope with 30 degree lens per inspection revealed very healthy bladder mucosa. Ureteral orifices were in orthotopic position. I cannulated the left UO and advanced a wire to the kidney. A 6 Polish by 24 cm double-J stent was advanced over the wire with a good curl in the kidney as well as the bladder. The bladder was decompressed and the case concluded. I attest to the content of the Intraoperative Record and any orders documented therein. Any exceptions are noted below.
--- NOTE | 2022-06-13 11:57 | Fluoroscopy Report ---
FL KUB CLINICAL HISTORY: LT STENT COMPARISON STUDY: KUB June 13, 2022 at 8:03 AM. FLUOROSCOPY TIME: 6 seconds FLUOROSCOPIC IMAGES: 1 FINDINGS: Fluoroscopy was provided during left ureteral stent placement. Proximal aspect of stent pro jects over the left renal pelvis. IMPRESSION: Fluoroscopy provided during placement of a left ureteral stent. ACT 112: Negative or not required by law. Electronically signed by: Fabien Slater M.D. 06/13/2022 11:55 AM
--- NOTE | 2022-06-13 12:32 | Anesthesiology Progress Note ---
Date of Service June 13, 2022 Anesthesia Post Procedure Vital Signs Vital Signs: Temp Pulse Pulse Resp BP Pulse Ox O2 Del Method 06/13/22 12:15 97.7 F 70 18 123/77 96 Room Air 06/13/22 11:50 68 14 104/74 94 Oxymask 06/13/22 11:40 70 12 90/56 L 97 Oxymask 06/13/22 11:31 97.2 F L 82 16 99/72 L 97 Oxymask 06/13/22 10:29 97.7 F 72 20 140/83 99 Room Air 06/13/22 07:48 97.9 F 77 16 129/75 94 06/13/22 01:30 Room Air 06/13/22 01:42 98 Room Air 06/13/22 01:30 98.1 F 73 16 135/84 Room Air 06/12/22 22:00 69 18 130/79 98 Room Air 06/12/22 18:37 72 18 137/82 98 Room Air 06/12/22 17:48 78 18 129/90 97 Room Air O2 Flow Rate 06/13/22 12:15 06/13/22 11:50 5 06/13/22 11:40 5 06/13/22 11:31 7 06/13/22 10:29 06/13/22 07:48 06/13/22 01:30 06/13/22 01:42 06/13/22 01:30 06/12/22 22:00 06/12/22 18:37 06/12/22 17:48 Pain Intensity Left Lower Abdomen: Pain Intensity: 0 Transfer of Care Handoff Completed per policy Notes Mental Status: alert / awake / arousable and participated in evaluation Patient Amnestic to Procedure: Yes Nausea / Vomiting: adequately controlled Pain: adequately controlled Airway Patency, RR, SpO2: stable & adequate BP & HR: stable & adequate Hydration State: stable & adequate Anesthetic Complications: no major complications apparent and Pt Satisfied with anesthetic care
--- NOTE | 2022-06-13 14:08 | Hospitalist Progress Note ---
Date of Service June 13, 2022 Assessment & Plan (1) Left ureteral calculus: Plan This is a 61 yr old F who has a significant PMH of HTN, HLD, frequent kidney stones, recurrent UTI and gerd who presents to ED 2/2 L sided lower quadrant pain x 1 day. Pt was initially seen and evaluated at [facility] for her LLQ pain. Told she had a stone, UTI, tx with IV antibiotics, fluids and pain meds. Was there for ~ 36hrs, but wasn't satisfied with care/didn't seen urology. She left AMA and presented to our ED. Left ureteral calculus Possible UTI KUB reveals 6 mm calcification at the left UPJ Urology consulted - planning for cystoscopy, Left retrograde pyelogram and Left stent placement today with Dr. Lea Covered with IV Ceftriaxone preoperatively Continue Flomax, IV fluids, analgesics PRN HIM consulted for [facility] records Allergies/congestion Flonase, mucinex PRN HTN continue metoprolol, hctz HLD continue crestor DVT ppx: SCDS, consider chemical prophylaxis post op tomorrow FULL CODE DISPO: med/surg PCP: Rita Gil Pt was seen and examined in collaboration with Dr. Gupta. Please see addendum Admission and Anticipated Discharge Date Admission Date: June 12, 2022 Supervising Physician Co-Signing Physician Notes Agree with above documentation of Ayana Mohr PA-C. Patient seen and examined independently. Patient was comfortably lying in the bed; not in any distress. She was complaining of nasal congestion. No abdominal pain or burning micturition. Patient underwent cystoscopy with left stent placement for the ureteral stone. Patient to get discharged today with follow up with Urology on Thursday. Subjective Patient seen and examined in 352 bed 2. Patient with some nausea last evening that is since resolved. Still with left flank/suprapubic pain. Denies daron hematuria. Feels congested today with cough that irritates abdominal pain. No fever, chills or productive cough. No chest pain, shortness of breath, nausea, vomiting, dysuria, diarrhea or constipation. Due for ureteral stent placement today. Review of Systems Review of Systems: All systems reviewed & are unremarkable except as noted in Subjective Physical Exam Physical Exam: General Appearance: no apparent distress Head: normocephalic, Atraumatic Eyes: normal inspection, EOMI Neck: supple, Trachea midline Respiratory/Chest: Normal breath sounds, CTA, No accessory muscle use Cardiovascular: S1, S2, No murmur Abdomen/GI/: Soft, Bowel sounds present, LLQ/suprapubic pain,no flank tenderness, no guarding or rigidity Extremities/Musculoskeletal:normal inspection, no edema Neurologic/Psych:AAOX3, grossly no focal neurological deficits Skin: normal color, warm Results & Data Results & Data ([facility]) Vital Signs (Past 12 Hours) Vital Signs Temp Pulse Pulse Resp BP Pulse Ox O2 Del Method 06/13/22 13:17 36.7 C 72 18 117/73 97 Room Air 06/13/22 12:45 36.4 C L 68 18 142/64 H 97 Room Air 06/13/22 12:15 36.5 C 70 18 123/77 96 Room Air 06/13/22 11:50 68 14 104/74 94 Oxymask 06/13/22 11:40 70 12 90/56 L 97 Oxymask 06/13/22 11:31 36.2 C L 82 16 99/72 L 97 Oxymask 06/13/22 10:29 36.5 C 72 20 140/83 99 Room Air 06/13/22 07:48 36.6 C 77 16 129/75 94 O2 Flow Rate 06/13/22 13:17 06/13/22 12:45 06/13/22 12:15 06/13/22 11:50 5 06/13/22 11:40 5 06/13/22 11:31 7 06/13/22 10:29 06/13/22 07:48 Laboratory Results Short CBC 06/13/22 Range/Units 06:57 WBC 5.37 (4.8-10.8) K/ul Hgb 11.4 L (12.0-16.0) g/dl Hct 34.8 (34.1-44.9) % Plt Count 238 (130-400) K/uL BMP 06/12/22 06/13/22 16:13 06:57 Sodium 139 138 Potassium 3.5 3.5 Chloride 101 104 Carbon Dioxide 29 30 BUN 21 18 Creatinine 0.69 0.61 Glucose 88 87 Calcium 9.7 8.4 L Liver Function 06/12/22 Range/Units 16:13 Total Bilirubin 0.7 (0.2-1.0) mg/dl AST 20 (13-39) U/L ALT 31 (7-52) U/L Alkaline Phosphatase 79 (34-104) U/L Albumin 4.5 (3.4-5.0) gm/dl Diagnostic Findings KUB X-Ray 06/12/22 12:46 KUB HISTORY: Left ureteral stone COMPARISON: None. FINDINGS: The bowel gas pattern is unremarkable. There are no dilated loops of small bowel to suggest an obstruction. The renal shadows are mostly obscured by overlying bowel gas. No definite renal calculi identified. Calcifications in the deep pelvis are nonspecific but favor phleboliths. There is a 6 mm calcification in the expected location of the left ureteropelvic junction. This may correspond to the patient's history of a left ureteral stone. No pneumoperitoneum or pneumatosis. IMPRESSION: A 6 mm calcification at the expected location of the left ureteropelvic junction which may correspond to the patient's history of a left ureteral stone. ACT 112: Negative or not required by law. Electronically signed by: Kushal Sun M.D. 06/12/2022 1:27 PM KUB X-Ray 06/13/22 08:00 KUB CLINICAL HISTORY: 6mm L UPJ stone COMPARISON STUDY: KUB June 12, 2022. FINDINGS: Bowel gas pattern is normal. Pelvic calcifications are unchanged and favor phleboliths. There may be postoperative findings within the pelvis with surgical staple lines. 6 mm calcification now projects over the expected location of the proximal left ureter. There is slight distal migration since prior KUB. There are possible bilateral renal calculi. IMPRESSION: 1. Suspected 6 mm proximal left ureteral calculus. Slight distal migration since prior exam. 2. Possible bilateral nephrolithiasis. ACT 112: Negative or not required by law. Electronically signed by: Fabien Slater M.D. 06/13/2022 9:02 AM Abdomen Fluoroscopy 06/13/22 10:30 FL KUB CLINICAL HISTORY: LT STENT COMPARISON STUDY: KUB June 13, 2022 at 8:03 AM. FLUOROSCOPY TIME: 6 seconds FLUOROSCOPIC IMAGES: 1 FINDINGS: Fluoroscopy was provided during left ureteral stent placement. Proximal aspect of stent projects over the left renal pelvis. IMPRESSION: Fluoroscopy provided during placement of a left ureteral stent. ACT 112: Negative or not required by law. Electronically signed by: Fabien Slater M.D. 06/13/2022 11:55 AM
[2022-06-13] MEDS: FLUTICASONE PROPIONATE NA SPR 16 GM BTL SCH (14:47)
--- NOTE | 2022-06-13 15:54 | Discharge Summary ---
Date of Service June 14, 2022 Admission HPI Per Admitting Provider This is a 61 yr old F who has a significant PMH of HTN, HLD, frequent kidney stones, recurrent UTI and gerd who presents to ED 2/2 L sided lower quadrant pain x 1 day. She developed L sided pain yesterday. At approx 7pm last evening she developed severe pains on L side of lower abdomen. Due to pain becoming more severe she presented to [facility]. She was dx with 6mm stone. She was told she had a UTI. She was given IV antibiotics, fluids and pain meds. Pain radiated to the back. Pain was 9/10. She described it as stabbing pain. Pain was constant but would come and go in severity. "This pain is much worse then labor pains." She was at [facility] for approx 36 hours and didn't see anyone from urology. Due to this she opted to leave the hospital AMA and presented here to seek, "better care." She did experience feeling feverish, chills, n/v. Currently these have subsided. She had 1 episode of diarrhea last evening. She feels generally dry and occasionally lightheaded. She denies any chest pain, sob, cough, uri sx, hematemesis, melena, hematochezia, dysuria, or hematuria. She does have more frequency and urgency. In our ED KUB does show 6mm L UPJ stone. She was treated with IV antibiotics and pain meds. Admission Exam Per Admitting Provider General Appearance:Obese, no apparent distress Head: normocephalic, Atraumatic Eyes: normal inspection, EOMI Neck: supple, Trachea midline Respiratory/Chest: Normal breath sounds, CTA, No accessory muscle use Cardiovascular: S1, S2, No murmur Abdomen/GI:Soft, Non tender, Bowel sounds present, no flank tenderness, no guarding or rigidity Extremities/Musculoskeletal:normal inspection, no edema Neurologic/Psych:AAOX3, grossly no focal neurological deficits Skin: normal color, warm Principal Diagnosis Left ureteral calculus s/p Cystoscopy with stent placement Discharge Exam General Appearance: no apparent distress Head: normocephalic, Atraumatic Eyes: normal inspection, EOMI Neck: supple, Trachea midline Respiratory/Chest: Normal breath sounds, CTA, No accessory muscle use Cardiovascular: S1, S2, No murmur Abdomen/GI/: Soft, Bowel sounds present, LLQ/suprapubic pain,no flank tenderness, no guarding or rigidity Extremities/Musculoskeletal:normal inspection, no edema Neurologic/Psych:AAOX3, grossly no focal neurological deficits Skin: normal color, warm Discharge Data Allergies Allergy/AdvReac Type Severity Reaction Status Date / Time butorphanol [From Stadol] Allergy Severe Hallucinati Verified 06/12/22 18:31 ng oxybutynin AdvReac Mild Flushing Verified 06/12/22 18:31 Consultations 06/12/22 18:17 Consult Urology Routine 06/12/22 18:23 ED Decision to Admit Stat 06/12/22 19:32 HIM [Consult Health Information Management] Routine Procedures Performed Operation Date: 06/13/22 07:40 Actual Procedures p Cystoscopy Left Stent Placement - Bubba Baumann MD Ordered Studies 06/13/22 10:30 FL KUB Routine Hospital Course (1) Left ureteral calculus: Plan This is a 61 yr old F who has a significant PMH of HTN, HLD, frequent kidney stones, recurrent UTI and gerd who presents to ED 2/2 L sided lower quadrant pain x 1 day. She was initially seen and evaluated at [facility] for her LLQ pain. She was told she had a stone, UTI and treated with IV antibiotics, fluids and pain medications. She was there for ~ 36hrs, but wasn't satisfied with care and didn't seen urology. She left AMA and presented to the ED here. xX-ray KUB showed 6 mm proximal left ureteral calculus. She was also started on ceftriaxone and IV fluids. Patient underwent cystoscopy and left-sided stent placement by urology on 06/13. Patient was discharged with oral antibiotic, oral analgesics and was instructed to follow-up with urology. Her appointment was set up for Thursday. No other medication changes were done on discharge. Total Time Total Time Spent Total Time Spent (In Minutes): 25 Discharge Plan Discharge Items Patient Disposition: Home - Self-Care Reason For Visit: L URETERAL STONE Discharge Diagnosis: L ureteral stone Condition on Discharge: Good Activity: Resume your previous activity Non-emergency contact: Primary Care Provider Call non-emergency contact if: you have any medication questions, your symptoms worsen, your pain is not controlled and you have a fever Follow-up/Referrals: Genia Morales CRNP [Nurse Practitioner] - 06/18/22 2:30 pm Rita Gil D.O. [Primary Care Provider] - Diet: Regular Addtl Attending Provider Instructions: You were admitted for left ureteral stone s/p stent placement by Dr. Baumann. Please complete ciprofloxacin course as prescribed by urology and follow-up in clinic as directed. Continue Flomax daily for 2 weeks. Please follow up with your primary care provider for hospital follow up. PENDING TEST RESULTS: blood culture RECOMMENDATIONS FOR FOLLOW-UP: Please follow up with urology on Thursday as scheduled and PCP. OTHER INSTRUCTIONS: Seek medical attention if you have: * temperature above 101 * chest pain or trouble breathing * abdominal pain, nausea, vomiting * diarrhea, dark stools or bloody stools * any unanswered questions or concerns Call 911 if symptoms are severe. Please take good care of yourself. Call if you have any questions or problems. You can reach a [facility] hospitalist on duty at [facility] 24 hours a day by calling [phone]. Pending Studies at Discharge: Yes Studies:: blood culture Stand-Alone Forms: My [facility] Health, Opioid Pain Management, Smoking Cessation Medications and DC Order Prescriptions: New hydrocodone-acetaminophen 5-325 mg tablet 1 tab PO Q6H PRN (Reason: pain) Qty: 10 0RF ciprofloxacin HCl [Cipro] 500 mg tablet 500 mg PO BID Qty: 6 0RF hydrocodone-acetaminophen 5-325 mg tablet 1 tab PO Q6H PRN (Reason: pain) Qty: 10 0RF ciprofloxacin HCl [Cipro] 500 mg tablet 500 mg PO BID Qty: 6 0RF tamsulosin 0.4 mg Capsule 0.4 mg PO HS Qty: 14 0RF Continued allopurinol 300 mg tablet 300 mg PO DAILY hydrochlorothiazide 25 mg tablet 25 mg PO DAILY metoprolol succinate 25 mg tablet extended release 24 hr 25 mg PO DAILY rosuvastatin 10 mg tablet 10 mg PO DAILY multivitamin Tablet 1 tab PO DAILY cetirizine 10 mg Tablet 10 mg PO DAILY pantoprazole 40 mg Tablet,Delayed Release (Dr/Ec) 40 mg PO DAILY cholecalciferol (vitamin D3) 50 mcg (2,000 unit) Tablet 50 mcg PO DAILY Probiotic 3 billion cell Capsule 3,000 mmu cells PO DAILY Rx Instructions: administer with a meal ascorbic acid (vitamin C) [Vitamin C] 125 mg Tablet,Chewable 125 mg PO DAILY potassium chloride 20 mEq tablet extended release 20 meq PO DAILY docusate sodium [Colace] 100 mg Capsule 100 mg PO DAILY Discharge Orders: Discharge Order (Routine); Ordered 06/14/22 Ordered By: Obinna Gupta Admission Data Admit Date/Time: 06/12/22 18:17 Attending Provider: Obinna Gupta Admit Provider: Jimmie Mazariegos Primary Care Provider: Rita Gil Other Providers: Ayana Mohr ; Bubba Baumann ; Jimmie Mazariegos Other Interventions: Discharge Summary Assessment (RN) Last Done: 06/14/22 09:47
[2022-06-13] MEDS ORDERED: cefTRIAXone SODIUM 2,000 MG in DEXTROSE 5% 50 ML IV SCH (17:00)
[2022-06-14] MEDS: LACTATED RINGER'S 1,000 ML IV SCH (05:13)
[2022-06-14 07:37] LABS: Basophils # (auto) 0.03 K/uL (0-0.2); Basophils % (auto) 0.6 %; Eosinophils # (auto) 0.39 K/uL (0-0.50); Eosinophils % (auto) 8.2 %; Hematocrit (blood only) 33.6 % (34.1-44.9); Hemoglobin 11.4 g/dl (12.0-16.0); Immature Granulocytes # (auto) 0.01 K/uL (0.00-0.02); Immature Granulocytes % (auto) 0.2 %; Lymphocytes # (auto) 1.58 K/uL (1.2-3.4); Lymphocytes % (auto) 33.1 %; Mean Corpuscular Hemoglobin 29.3 pg (25.0-34.0); Mean Corpuscular Hgb Conc 33.9 g/dL (32.0-36.0); Mean Corpuscular Volume 86.4 fL (80.0-100.0); Mean Platelet Volume 9.5 fL (9.4-12.3); Monocytes # (auto) 0.34 K/uL (0.24-0.82); Monocytes % (auto) 7.1 %; Neutrophils # (auto) 2.42 K/uL (1.4-6.5); Neutrophils % (auto) 50.8 %; Platelet Count 233 K/uL (130-400); RDW Coefficient of Variation 13.2 % (11.5-14.5); RDW Standard Deviation 41.7 fL (36.4-46.3); Red Blood Count 3.89 M/uL (3.93-5.22); White Blood Count 4.77 K/ul (4.8-10.8)
[2022-06-14 07:57] LABS: BUN Creatinine Ratio 23.4 (10-20); Calcium 8.7 mg/dl (8.5-10.1); Creatinine Clr Calc Pharmacy 110.9 ml/min; Est GFR (African American) 113.2 ml/min; Est GFR (Non-African American) 97.7 ml/min; Potassium 3.3 mmol/L (3.5-5.1)
[2022-06-14] MEDS: CHOLECALCIFEROL 1,000 UNITS 25 MCG TAB PO SCH (08:46)
[2022-06-14] MEDS: DOCUSATE SODIUM 100 MG CAP PO SCH (08:47)
[2022-06-14] MEDS: METOPROLOL SUCC 25MG EXT REL TAB PO SCH (08:47)
[2022-06-14] MEDS: POTASSIUM CHLORIDE CRTAB 20 MEQ TABCR PO SCH (08:47)
[2022-06-14] MEDS: ADVANCED PROBIOTIC 1250 MG CAPSULE PO SCH (08:47)
[2022-06-14] MEDS: allopurinoL 300 MG TAB PO SCH (08:47)
[2022-06-14] MEDS: ASCORBIC ACID 500 MG TAB PO SCH (08:47)
[2022-06-14] MEDS: CETIRIZINE HCL 10 MG TABLET PO SCH (08:47)
[2022-06-14] MEDS: MULTIVITAMIN TAB PO SCH (08:47)
[2022-06-14] MEDS: PANTOprazole 40 MG TAB PO SCH (08:48)
[2022-06-14] MEDS: FLUTICASONE PROPIONATE NA SPR 16 GM BTL SCH (08:48)
[2022-06-14] MEDS: ROSUVASTATIN CALCIUM 10 MG TAB PO SCH (08:48)
[2022-06-14] MEDS: ACETAMINOPHEN 325 MG TAB PO PRN (08:51)
--- NOTE | 2022-06-14 08:57 | Urology Progress Note ---
Date of Service June 14, 2022 Assessment & Plan (1) Left ureteral calculus: Plan: Postop day #1 status post left ureteral stent placement Doing extremely well DC home Follow-up as an outpatient for definitive stone treatment Admission and Anticipated Discharge Date Admission Date: June 12, 2022 Subjective Subjectively feels much better today No major issues Tolerating her stent very well thus far Physical Exam Constitutional: well developed and well nourished Respiratory: no respiratory distress Cardiovascular: Extremities: no pedal edema Gastrointestinal (Abdomen): Inspection/Auscultation: abdomen normal to inspection Results & Data ([facility]) Vital Signs (Past 12 Hours) Vital Signs Temp Pulse Pulse Resp BP Pulse Ox O2 Del Method 06/14/22 07:47 36.6 C 65 16 128/80 96 06/14/22 02:53 36.5 C 78 16 134/72 92 06/13/22 23:35 36.9 C 72 16 151/82 H 97 Room Air PG Care Time/CCT Total # of Minutes Spent Total Time Spent with Patient: Total time spent is greater than 50% in coordination of care (as documented) at patient's floor/unit and/or counseling patient: Coding Level of Care Code 99089 Subseq Hosp Care Lvl 2 Diagnoses Left ureteral calculus N20.1
[2022-06-14] MEDS: hydroCHLOROthiazide 25 MG TAB PO SCH (09:42)
== END 2022-06-14 10:44 | disposition home or self-care (01) | DRG 660 ==
LOC: ED 11:23 → 3W 18:17 → SUATTDRO 18:17 → 3W 06-13 01:14